=== PATIENT | male | born 1975 | race Caucasian/White ===

== ENCOUNTER 2024-11-14 12:24 | Emergency (ER) | payer BC, SELFPAY ==
--- NOTE | ~2024-11-14 | XR_ITS ---
EXAMINATION: [id number], 11/14/2024 12:55 CDT HISTORY: ant left upper pain from fall off truck COMPARISON: No comparisons available. Findings: No acute fracture or malalignment. No significant degenerative changes. Soft tissues unremarkable. Impression: No acute fracture or malalignment. Reviewed, dictated and finalized at location P. Impression: No acute fracture or malalignment.
--- NOTE | ~2024-11-14 | XR_ITS ---
EXAMINATION: XR wrist LT min 3V, 11/14/2024 12:50 CDT HISTORY: fall off truck, distal dorsal radial swelling COMPARISON: No comparisons available. Findings: No acute fracture or malalignment. No significant degenerative changes. Soft tissues unremarkable. Impression: No acute fracture or malalignment. Reviewed, dictated and finalized at location P. Impression: No acute fracture or malalignment.
--- OUTSIDE RECORDS SUMMARY | 2024-11-14 12:31 | XMS_ITS | Clinical Summary ---
Author Organization [facility] [employer] Address [address] [place] [address] Care Team Providers Care Biosolids Management Technician Name Role Phone Elder Jiménez MD Primary Care Provider [phone] Source Comments [facility] [employer],non-owned Affiliates and Associated Physician Practices is amultiple site organization consisting of ambulatory clinics and hospital sitesin [place], [place], [place] and [place]. This disclosure is being madepursuant to the Care Everywhere program and may not contain all information available regarding this patient. Last updated 17.[facility] [employer] Allergies No known active allergies Medications * Be aware that medications may not be up to date on this document. Alwaysverify current medications with the patient. oxyCODONE-acet aminophen (PERCOCET) 5-325 MG tablet Take 1 tablet by mouth every 4 hours as needed for Pain 24 tablet 0 Active docusate sodium (COLACE) 100 MG capsule Take 1 capsule by mouth once daily 30 capsule 0 Active HYDROcodone-ac etaminophen (NORCO) 5-325 MG tabletIndicati ons:Closed fracture of olecranon process of right ulna with routine healing Take 1 tablet by mouth every 6 hours as needed for Pain 30 tablet 0 Active HYDROcodone-ac etaminophen (NORCO) 5-325 MG tablet Take 1 tablet by mouth every 6 hours as needed for Pain 40 tablet 0 Active acetaminophen (TYLENOL) 500 MG tablet Take 1 tablet by mouth every 6 hours as needed for Fever or Pain Maximum allowable Acetaminophen amount = 4 Grams (4000 mg) / 24 hours. 0 0 Active Active Problems Problem Noted Date Diagnosed Date Closed fracture of olecranon process of right ulna with routine healing 01/24/2020 Immunizations Immunization Administration Dates Next Due TDAP (7yrs+) 03/09/2018 Family History Medical History Relation Name Comments Cancer - Prostate Father Diabetes - Type 2 Father Diabetes - Type 2 Mother Relation Name Status Comments Brother Alive Father Alive Mother Alive Social History Tobacco Use Types Packs/Day Years Used Date Smoking Tobacco: Never Smokeless Tobacco: Never Alcohol Use Standard Drinks/Week Comments Yes 0 (1 standard drink = 0.6 oz pur e alcohol) social Sex and Gender Information Value Date Recorded Sex Assigned at Male 09/05/2023 9:24 AM CDT Legal Sex Male 6:32 AM PILLOWCASE CLEANER Gender Identity Male 09/05/2023 9:24 AM CDT Sexual Orientation Not on file Last Filed Vital Signs Vital Sign Reading Time Taken Comments Blood Pressure 146/94 02/06/2020 5:15 PM PILLOWCASE CLEANER Pulse 104 02/06/2020 5:15 PM PILLOWCASE CLEANER Temperature 36.8 C (98.3 F) 02/06/2020 5:15 PM PILLOWCASE CLEANER Respiratory Rate 11 02/06/2020 5:15 PM PILLOWCASE CLEANER Oxygen Saturation 93% 02/06/2020 5:15 PM PILLOWCASE CLEANER Inhaled Oxygen Concentration - - Weight 107.5 kg (237 lb) 02/27/2020 3:29 PM PILLOWCASE CLEANER Height 188 cm (6' 2) 02/27/2020 3:29 PM PILLOWCASE CLEANER Body Mass Index 30.43 02/27/2020 3:29 PM PILLOWCASE CLEANER Plan of Treatment Health Maintenance Due Date Last Done Comments COLOGUARD (AGES 45-75) - COL ON CA SCREENING 1977 COLON MONITORING 1977 COLONOSCOPY - COLON CA SCREENING 1977 CT COLONOGRAPHY - COLON CA SCREENING 1975 Colorectal Cancer Screening 1977 FIT - COLON CA SCREENING 1977 FLEX SIG - COLON CA SCREENING 1977 HIV SCREENING 1992 HEPATITIS C SCREENING 12/20/1995 HEPATITIS B VACCINE (1 of 3 - 19+ 3-dose series) 1996 SCREENING FOR DIABETES 02/05/2023 0, 03/18/2018, 12/31/2014 LIPID TESTING 03/18/2023 03/18/2018 DEPRESSION SCREENING 02/15/2024 COVID-19 VACCINE (1 - 2023-2 5 season) 2024 INFLUENZA VACCINE (#1) 2024 ZOSTER VACCINE (1 of 2) 12/25/2027 DTAP/TDAP/TD VACCINES (2 - T d or Tdap) 03/09/2028 03/09/2018 HIB VACCINE Aged Out No longer eligi ble based on patient's age to complete this topic HPV VACCINE Aged Out No longer eligi ble based on patient's age to complete this topic MENINGOCOCCAL (Group B) VACCINE SHARED DECISION-MAKING Aged Out No longer eligible based on patient's age to complete this topic MENINGOCOCCAL GROUPS A/C/Y/W VACCINE Aged Out No longer eligible b ased on patient's age to complete this topic PNEUMOCOCCAL VACCINE Aged Out No long er eligible based on patient's age to complete this topic Medical Devices Implanted Type Area Tile Setter Device Identifier Shelf Expiration Date Model / Serial / Lot Graft Bone Canc 4-9.5mm 15cc Frzdr Chp Implanted:Qty: 1 on 02/06/2020 by Lindsay Romero MD at [facility] Right: Elbow [employer] 08/22/2024 [id number] / / [id number] Screw 3.5mm 22mm T15 Slf-Tap Tip Lck Implanted:Qty: 1 on 02/06/2020 by Lindsay Romero MD at [facility] Right: Elbow [employer] [id number] / / Screw 3.5mm 55mm T15 Lck Lopro Slf-Tap Implanted:Qty: 1 on 02/06/2020 by Lindsay Romero MD at [facility] Right: Elbow [employer] [id number] / / Screw 3.5mm 20mm T15 Slf-Tap Lck Tpr Implanted:Qty: 1 on 02/06/2020 by Lindsay Romero MD at [facility] Right: Elbow [employer] [id number] / / Screw 3.5mm 22mm T15 Slf-Tap Lck Tpr Implanted:Qty: 1 on 02/06/2020 by Lindsay Romero MD at [facility] Right: Elbow [employer] [id number] / / Screw 3.5mm 50mm T15 Slf-Tap Lck Tpr Implanted:Qty: 1 on 02/06/2020 by Lindsay Romero MD at [facility] Right: Elbow [employer] [id number] / / Screw 3.5mm 24mm Ft Nonlock Hex Drv Elb Implanted:Qty: 1 on 02/06/2020 by Lindsay Romero MD at [facility] Right: Elbow [employer] [id number] / / Screw 3.5mm 22mm Ft Hex Drv Nlckg Blake Implanted:Qty: 1 on 02/06/2020 by Lindsay Romero MD at [facility] Right: Elbow [employer] [id number] / / Procedures Procedure Name Priority Date/Time Associated Diagnosis Comments COMPREHENSIVE METABOLIC PANEL NEPTALI 02/06/2020 7:15 AM PILLOWCASE CLEANER Closed fracture of olecranon process of right ulna with routine healing LIPID PROFILE Routine 03/18/2018 10:12 AM PILLOWCASE CLEANER Well adult exam from Last 3 Months or Most Recently Relevant to Health Maintenance Results * (ABNORMAL) COMPREHENSIVE METABOLIC PANEL (02/06/2020 7:15 AM PILLOWCASE CLEANER) [facility] Glucose 111(H) 70 - 105 mg/dL 02/06/2020 8:12 AM PILLOWCASE CLEANER [facility] Sodium 141 136 - 145 mmol/L 02/06/2020 8:12 AM PILLOWCASE CLEANER [facility] Potassium 4.2 3.5 - 5.1 mmol/L 02/06/2020 8:12 AM [facility] Chloride 104 98 - 107 mmol/L 02/06/2020 8:12 AM [facility] CO2 25 23 - 31 mmol/L 02/06/2020 8:12 AM [facility] Calcium 9.4 8.4 - 10.4 mg/dL 02/06/2020 8:12 AM [facility] Anion Gap 12 8 - 18 mmol/L 02/06/2020 8:12 AM [facility] Comment:Attention clinician: Reference Range change. BUN 14 8.9 - 20.6 mg/dL 02/06/2020 8:12 AM [facility] Creatinine 0.93 0.72 - 1.25 mg/dL 02/06/2020 8:12 AM [facility] Alkaline Phosphatase 77 40 - 150 U/L 02/06/2020 8:12 AM [facility] Comment:Attention clinician: Reference Range change. ALT 33 0 - 61 U/L 02/06/2020 8:12 AM [facility] AST 23 5 - 34 U/L 02/06/2020 8:12 AM [facility] Protein Total 8.1 6.4 - 8.3 gm/dL 02/06/2020 8:12 AM [facility] Albumin 4.5 3.5 - 5.2 gm/dL 02/06/2020 8:12 AM [facility] Bilirubin Total 0.4 0.2 - 1.2 mg/dL 02/06/2020 8:12 AM [facility] Comment:Attention clinician: Reference Range change. eGFR by MDRD >60 >60 mL/min/1.7 3m2 02/06/2020 8:12 AM [facility] eGFR by MDRD >60 >60 mL/min/1.7 3m2 02/06/2020 8:12 AM [facility] Blood BLOOD SPECIMEN / Unknown Venipuncture / Unknown 02/06/2020 7:15 AM PILLOWCASE CLEANER 02/06/2020 7:50 AM [facility] us Lindsay Romero MD LAB - CHEMISTRY ORDERABLES Final Result [facility] [address] [place] [address] * (ABNORMAL) LIPID PROFILE (03/18/2018 10:12 AM PILLOWCASE CLEANER) Cholesterol 216(H) 100 - 199 mg/dL [facility] INSURANCE BILL Triglycerides 219(H) 0 - 149 mg/dL [facility] INSURANCE BILL HDL Cholesterol 41 >39 mg/dL [facility] INSURANCE BILL VLDL Calculated 44(H) 5 - 40 mg/dL [facility] INSURANCE BILL LDL Calculated 131(H) 0 - 99 mg/dL [facility] INSURANCE BILL Comment NOT NEEDED [facility] INSURANCE BILL Comment: FASTING Ancillary determined the test is not needed Blood BLOOD SPECIMEN / Unknown 03/18/2018 10:12 AM PILLOWCASE CLEANER 03/18/2018 Narrative Resulting Agency Comment [facility] [address] [phone] Elder Jiménez MD LAB - CHEMISTRY ORDERABLES Fi nal Result [facility] INSURANCE BILL [address] [place] [address] from Last 3 Months or Most Recently Relevant to Health Maintenance Insurance ANTHEM ANTHEM * Guarantor: BYRON AMIN Account Type Relation to Patient Date of Phone Billing Address Personal/Family 1975 [address] [place] [id number] ANTHEM Care Teams Biosolids Management Technician Relationship Specialty Start Date End Date Elder Jiménez MD PCP - General 01/21/20
--- OUTSIDE RECORDS SUMMARY | 2024-11-14 12:31 | XMS_ITS | Encounter Summary ---
Author Organization [facility] Address [address] [place] [address] Care Team Providers Care Weight Reduction Specialist Name Role Phone Sheyla Nieto APRN-ELECTRONIC COMPONENTS ASSEMBLER Unavailable [phone] Elder Jiménez MD Primary Care Provider [phone] Reason for Visit * Reason Onset Date Comments MEDICATION REFILL 01/31/2020 Encounter Details Date Type Department Care Team (Late st Contact Info) Description 01/31/2020 Refill [facility] - Orthopedic Surgery [address] [place] [address], [address] [place], [place] [id number] Andra Mckenna BPM SOLUTION ARCHITECT REFILL Social History Tobacco Use Types Packs/Day Years Used Date Smoking Tobacco: Never Smokeless Tobacco: Never Alcohol Use Standard Drinks/Week Comments Yes 0 (1 standard drink = 0.6 oz pur e alcohol) social Sex and Gender Information Value Date Recorded Sex Assigned at Male 09/05/2023 9:24 AM CDT Legal Sex Male 6:32 AM NICKEL PLANT OPERATOR Gender Identity Male 09/05/2023 9:24 AM CDT Sexual Orientation Not on file documented as of this encounter Plan of Treatment Not on file documented as of this encounter Visit Diagnoses Not on filedocumented in this encounter Additional Health Concerns Infection Onset Date Last Indicated Resolved Time COVID-19 Confirmed 01/28/2020 01/28/2020 0 4:34 AM NICKEL PLANT OPERATOR documented as of this encounter Care Teams Weight Reduction Specialist Relationship Specialty Start Date End Date Sheyla Nieto APRN-CNP [address] [place] [address] PCP - Attributed-[employer] 06/15/19 11/02/20 Elder Jiménez MD [address] [place] [address] PCP - General 01/21/20 documented as of this encounter
--- OUTSIDE RECORDS SUMMARY | 2024-11-14 12:31 | XMS_ITS | Clinical Summary ---
Author Organization [facility] Address [address] [place] [address] Phone Care Team Providers Care Fbi Sharpshooter Name Role Phone Unavailable Primary Care Provider Unavailabl e Allergies No known active allergies Medications codeine-guaiFENe sin (CHERATUSSIN AC) 10-100 mg/5 mL Liquid Take 10 mL by mouth every 4 hours as needed for Cough. 240 mL 0 01/07/2014 Active azithromycin (ZITHROMAX) 250 mg tabletIndication s:Upper respiratory infection Take 2 tabs the first day and 1 tab days 2-5 1 Package 0 01/07/2014 Active Active Problems Problem Noted Date Diagnosed Date Closed fracture of olecranon process of right ulna with routine healing 01/24/2020 Upper respiratory infection 01/07/2014 Social History Tobacco Use Types Packs/Day Years Used Date Smoking Tobacco: Never Alcohol Use Standard Drinks/Week Comments Yes 0 (1 standard drink = 0.6 oz pur e alcohol) Sex and Gender Information Value Date Recorded Sex Assigned at Not on file Legal Sex Male 5:41 AM BILLET BED OPERATOR Gender Identity Not on file Sexual Orientation Not on file Occupation Industry Job Start Date Job End Date Not on file Not on file Not on file Not on file Last Filed Vital Signs Vital Sign Reading Time Taken Comments Blood Pressure 136/93 03/13/2021 3:58 PM BILLET BED OPERATOR Pulse 89 03/13/2021 3:58 PM BILLET BED OPERATOR Temperature 36.6 C (97.9 F) 03/13/2021 3:58 PM BILLET BED OPERATOR Respiratory Rate 18 03/13/2021 3:58 PM BILLET BED OPERATOR Oxygen Saturation 97% 03/13/2021 3:58 PM BILLET BED OPERATOR Inhaled Oxygen Concentration - - Weight 108 kg (238 lb) 03/13/2021 3:58 PM BILLET BED OPERATOR Height 190.5 cm (6' 3) 03/13/2021 3:58 PM BILLET BED OPERATOR Body Mass Index 29.75 03/13/2021 3:58 PM BILLET BED OPERATOR Plan of Treatment Health Maintenance Due Date Last Done Comments HEPATITIS B VACCINES (1 of 3 - 19+ 3-dose series) 1996 COLORECTAL SCREENING 2022 Colorectal Cancer Screening 2022 FIT-DNA Q 3 years 2022 FIT/FOBT Q 1 year 2022 Flex Sig/CT Colonography Q 5 years 2022 INFLUENZA VACCINE (#1) 2024 DTAP/TDAP/TD VACCINES (2 - T d or Tdap) 03/09/2028 03/09/2018 HPV VACCINES Aged Out No longer eligi ble based on patient's age to complete this topic Insurance [employer]
--- OUTSIDE RECORDS SUMMARY | 2024-11-14 12:31 | XMS_ITS | Encounter Summary ---
Author Organization [facility] Address [address] [place] [address] Care Team Providers Care Product Safety Associate Name Role Phone Sheyla Nieto APRN-FITNESS CENTRE MANAGER Unavailable [phone] Elder Jiménez MD Primary Care Provider [phone] Reason for Visit * Reason Onset Date Comments MEDICATION REFILL 01/31/2020 Encounter Details Date Type Department Care Team (Late st Contact Info) Description 01/31/2020 Refill [facility] - Orthopedic Surgery [address] [place] [address], [address] [place], [place] [id number] Andra Mckenna SUPERINTENDENT PRESSURE REFILL Social History Tobacco Use Types Packs/Day Years Used Date Smoking Tobacco: Never Smokeless Tobacco: Never Alcohol Use Standard Drinks/Week Comments Yes 0 (1 standard drink = 0.6 oz pur e alcohol) social Sex and Gender Information Value Date Recorded Sex Assigned at Male 09/05/2023 9:24 AM CDT Legal Sex Male 6:32 AM NON DESTRUCTIVE EVALUATION SPECIALIST Gender Identity Male 09/05/2023 9:24 AM CDT Sexual Orientation Not on file documented as of this encounter Plan of Treatment Not on file documented as of this encounter Visit Diagnoses Not on filedocumented in this encounter Additional Health Concerns Infection Onset Date Last Indicated Resolved Time COVID-19 Confirmed 01/28/2020 01/28/2020 0 4:34 AM NON DESTRUCTIVE EVALUATION SPECIALIST documented as of this encounter Care Teams Product Safety Associate Relationship Specialty Start Date End Date Sheyla Nieto APRN-CNP [address] [place] [address] PCP - Attributed-[employer] 06/15/19 11/02/20 Elder Jiménez MD [address] [place] [address] PCP - General 01/21/20 documented as of this encounter
[2024-11-14 12:36] VITALS: BP 133/66; PULSE 84; RESP 18; TEMP 36.7; O2SAT 99
--- NOTE | 2024-11-14 12:41 | ED.GENADULT ---
HPI - General Adult General Chief complaint: Extremity Injury, Upper Stated complaint: left wrist injury Time Seen by Provider: 11/14/24 12:42 Source: patient, RN notes reviewed and old records reviewed Mode of arrival: ambulatory Limitations: no limitations History of Present Illness HPI narrative: 48 year old male presents to express care with complaints of stepping [place] in the [place] step and slipped and fell about 4 feet whih occurred this morning about 0615. Patient reports that he landed on his left wrist and left chest area. He states he has discomfort to the left wrist with some swelling noted and pain with attempted movement. He states soreness to the left chest region from fall also. Patient reports no shortness of breath or any pain with deep breathing. Patient reports that he did not hit his head and had no LOC denies any dizziness prior to fall MD complaint: pain to left wrist and to left upper chest area from fall Onset (ago): hour(s) (this morning at 0615) Severity scale (1-10): 8 (8 to wrist and 3 to chest area) Quality: aching Treatments prior to arrival: NSAID Related Data Home Medications ?Medication ?Instructions ?Recorded ?Confirmed ?Last Taken ?Type atorvastatin 20 mg tablet mg 11/14/24 Unknown History metformin 500 mg tablet mg 11/14/24 Unknown History naproxen 500 mg tablet mg 11/14/24 Unknown History Allergies Allergy/AdvReac Type Severity Reaction Status Date / Time No Known Allergies Allergy Verified 11/14/24 12:39 Review of Systems Review of Systems: CONSTITUTIONAL: Denies fever, chills, or sweats. EYES: Denies visual changes, redness, or discharge. ENT: Denies rhinorrhea, congestion, sore throat, or otalgia. CARDIOVASCULAR: Denies chest pain, palpitations, or edema.reports soreness to left chest area from fall RESPIRATORY: Denies cough or dyspnea. GASTROINTESTINAL: Denies abdominal pain, nausea, vomiting, or diarrhea. GENITOURINARY: Denies dysuria or hematuria. SKIN: Denies rash or itching. MUSCULOSKELETAL: Denies back pain,positive for pain to the left wrist radial aspect joint pain, or myalgia. NEUROLOGIC: Denies headache, numbness, or weakness. PSYCHIATRIC: Denies anxiety or depression. All systems reviewed & are unremarkable except as noted in HPI and below ON LICENSE OF [facility] Past Medical History Medical History (Updated 11/15/24 @ 10:34 by Breann Camejo NP) Elevated cholesterol Diabetes Surgical History Surgical History (Updated 11/15/24 @ 10:34 by Breann Camejo NP) History of ankle surgery left H/O elbow surgery right Hx of cholecystectomy Social History Social History (Updated 11/15/24 @ 10:35 by Breann Camejo NP) Smoking status: Unknown if ever smoked Alcohol intake: current Alcohol use details: social Substance use type: does not use Living arrangements: with family Gender identity (if verbalized by the patient): Male Comments At time of signature, agree with nursing past medical, surgical, social and family history. There is no relevant family history pertinent to the presenting complaint Exam Narrative: GENERAL: Well-appearing, well-nourished, and in no acute distress. HEAD: Normocephalic, atraumatic.reports did not hit his head EYES: PERRLA and EOMI. ENT: Nares clear, no rhinorrhea or epistaxis. Mucous membranes moist. NECK: Supple.no lymphadenopathy CHEST: Clear to auscultation. No respiratory distress. some tenderness to left anterior chest area from fall denies any shortness of breath or any pain with deep breathing, SAO2 99% on room air HEART: Regular rate and rhythm. No murmur heard. Normal peripheral pulses. ABDOMEN: Soft, nontender, nondistended, normal active bowel sounds. EXTREMITIES: Normal range of motion. No edema. Pain to the left wrist radial aspect with some swelling noted, is able to move left wrist but with pain, strong left radial pulse SKIN: Warm, dry, no rash. NEURO: No focal deficits. Alert and oriented x3. Course Course Emergency Course: Patient is aware of diagnosis, understands and agrees to treatment plan.? Anticipatory guidance given.? Patient agrees to follow-up as directed and is aware of reasons to seek care at the emergency department. Portions of this record may have been created with voice recognition software Level of Care: Express Care Visit Vital Signs Vital signs: Vital Signs Temperature 36.7 C 11/14/24 12:36 Pulse Rate 84 11/14/24 12:36 Respiratory Rate 18 11/14/24 12:36 Blood Pressure 133/66 11/14/24 12:36 Pulse Oximetry 99 11/14/24 12:36 Oxygen Delivery Room Air 11/14/24 12:36 Temperature 36.7 C 11/14/24 12:36 Pulse Rate 84 11/14/24 12:36 Respiratory Rate 18 11/14/24 12:36 Blood Pressure 133/66 11/14/24 12:36 Pulse Oximetry 99 11/14/24 12:36 Oxygen Delivery Room Air 11/14/24 12:36 Reviewed Medical Decision Making MDM Narrative Medical decision making narrative: Exam findings and imaging show no acute concerns or changes; patient is non-toxic appearing and is in no distress.? Patient is appropriate for outpatient treatment and follow-up Differential Diagnosis Differential Diagnosis: left wrist fracture, left wrist pain, contusion left wrist, contusion left chest wall, rib fracture or contusion. Medical Records Medical records reviewed: Yes I reviewed the external patient's medical records. Vital Signs Vital Signs: Vital Signs Temperature 36.7 C 11/14/24 12:36 Pulse Rate 84 11/14/24 12:36 Respiratory Rate 18 11/14/24 12:36 Blood Pressure 133/66 11/14/24 12:36 Pulse Oximetry 99 11/14/24 12:36 Oxygen Delivery Room Air 11/14/24 12:36 Temperature 36.7 C 11/14/24 12:36 Pulse Rate 84 11/14/24 12:36 Respiratory Rate 18 11/14/24 12:36 Blood Pressure 133/66 11/14/24 12:36 Pulse Oximetry 99 11/14/24 12:36 Oxygen Delivery Room Air 11/14/24 12:36 reviewed Imaging Data Attestation: I personally reviewed and interpreted this imaging study as follows: My impression: no fracture or malalignment of left wrist, no fracture of left ribs or malalignment left chest Radiologist's impression: [place] [id number] XRay Report Signed Patient: Armando Valles : 1975 MR#: [id number] Age: 48 Acct:[id number] Loc: [facility] ADM Date: 11/14/[address]: Ordering Physician: Breann Camejo APRN Date of Service: 11/14/24 Procedure(s): XR ribs LT w PA CXR Accession Number(s): [id number] cc: DYE BOARDING MACHINE OPERATOR PHYSICIAN; Breann Camejo APRN~ EXAMINATION: [id number], 11/14/2024 12:55 CDT HISTORY: ant left upper pain from fall off truck COMPARISON: No comparisons available. Findings: No acute fracture or malalignment. No significant degenerative changes. Soft tissues unremarkable. Impression: No acute fracture or malalignment. Reviewed, dictated and finalized at location P. Please be advised this is a medical document. It is intended for [id number] communication. It is written in medical language and may contain unfamiliar abbreviations or verbiage. Medical documents are intended to carry relevant information, facts as evident, and the clinical opinion of the practitioner at the time of the encounter. This report may have been done utilizing a voice recognition system. Attempts have been made to correct errors. However, there may be uncorrected grammatical, spelling, and recognition errors present. The file time of this note does not necessarily represent the time of service. Dictated By: Shan Valencia MD 11/14/24 1314 Signed By: <Electronically signed by Shan Valencia MD in [place]> [address] [place] [address] XRay Report Signed Patient: Armando Vallse : 1975 MR#: [id number] Age: 48 Acct:[id number] Loc: [facility] ADM Date: 11/14/[address]: Ordering Physician: Breann Camejo APRN Date of Service: 11/14/24 Procedure(s): XR wrist LT min 3V Accession Number(s): [id number] cc: DYE BOARDING MACHINE OPERATOR PHYSICIAN; Breann Camejo APRN~ EXAMINATION: XR wrist LT min 3V, 11/14/2024 12:50 CDT HISTORY: fall off truck, distal dorsal radial swelling COMPARISON: No comparisons available. Findings: No acute fracture or malalignment. No significant degenerative changes. Soft tissues unremarkable. Impression: No acute fracture or malalignment. Reviewed, dictated and finalized at location P. Please be advised this is a medical document. It is intended for [id number] communication. It is written in medical language and may contain unfamiliar abbreviations or verbiage. Medical documents are intended to carry relevant information, facts as evident, and the clinical opinion of the practitioner at the time of the encounter. This report may have been done utilizing a voice recognition system. Attempts have been made to correct errors. However, there may be uncorrected grammatical, spelling, and recognition errors present. The file time of this note does not necessarily represent the time of service. Dictated By: Shan Valencia MD 11/14/24 1317 Signed By: <Electronically signed by Shan Valencia MD in [place]> Critical Care Time Critical Care Time Critical Care Time: No Discharge Plan Discharge Clinical Impression: Sprain and strain of wrist Contusion of left chest wall Qualifiers: Encounter type: initial encounter Qualified Code(s): S20.212A - Contusion of left front wall of thorax, initial encounter Patient Disposition: Home Condition: Stable Instructions: Antibiotic Form, Wrist Injury (ED) Additional Instructions: Elastic wrap or orthopedic splint as directed for comfort for the next 5-7 days Tylenol for pain per bottle instructions Patient takes Naproxen prn avoid using other NSAIDS with this medication Follow-up with orthopedic surgeon if any continued pain or problems with wrist Follow-up with PCP if further problems or concerns Ice to the area 20-30 minutes 4-6 times a day Elevate above heart If any increased discomfort to upper chest or ribs where fell go to ED especially if any shortness of breath. If your symptoms persist, change or worsen significantly before you can contact your personal physician then please, without delay, go to the emergency department for further evaluation. Follow-up with PCP in 7-10 days or sooner if needed Follow up with PCP soon in regards to your blood pressure which is elevated above threshold for referral. Blood pressure above 120/80 may indicate pre-hypertension. Minimal systolic elevation 133/66 Patient Language: Malagasy Prescriptions: No Action metformin 500 mg tablet atorvastatin 20 mg tablet naproxen 500 mg tablet Follow-up/Referrals: PHYSICIAN,DYE BOARDING MACHINE OPERATOR [Primary Care Provider, Internal Medicine] Time of Disposition: 13:29 Quality [place] Coma Scale Eyes: Open Verbal: Oriented and Alert Motor: Follows Commands [place] Coma Total Score: 15
== END 2024-11-14 13:44 | disposition home or self-care (01) ==
PROVIDERS: Emergency Provider Registered Nurse
DX: S63.502A Unspecified sprain of left wrist, initial encounter (principal); S66.912A Strain of unspecified muscle, fascia and tendon at wrist and hand level, left hand, initial encounter; S20.212A Contusion of left front wall of thorax, initial encounter; W10.9XXA Fall (on) (from) unspecified stairs and steps, initial encounter; E11.9 Type 2 diabetes mellitus without complications; E78.00 Pure hypercholesterolemia, unspecified; Z79.84 Long term (current) use of oral hypoglycemic drugs
CPT/HCPCS: 71101; 73110; 99204; G0463